=== PATIENT | male | born 1945 | race Caucasian/White ===

== ENCOUNTER 2019-04-08 23:55 | Emergency (ER) | payer MEDICARE, OTHER ==
[~2019-04-08] VITALS: Ht 172.7 cm; Wt 95.3 kg
[~2019-04-08 23:55] MED LIST: ALBU1AER4 IN; APIX5TAB PO; CHOL20007 OR; FURO40TA4 PO; MELA3TAB27 PO; METF-370 PO; NITR1SPR TL
[2019-04-09 01:10] LABS: Basophils # (auto) 0 uL; Basophils % (auto) 0.7 % (0.0-2.0); Eosinophils # (auto) 0.3 uL; Hematocrit 42.8 % (41.0-53.0); Hemoglobin 14.3 g/dL (13.5-17.5); Lymphocytes # (auto) 1.1 uL; Lymphocytes % (auto) 17.4 % (10.0-50.0); Mean Corpuscular Hemoglobin 30.5 pg (28.0-32.0); Mean Corpuscular Hgb Conc. 33.3 g/dL (32.0-36.0); Mean Corpuscular Volume 91.5 fL (80.0-100.0); Monocytes # (auto) 0.5 uL; Neutrophils # (auto) 4.4 uL; Neutrophils % (auto) 68.9 % (37.0-80.0); Platelet Count (auto) 265 10^3/uL (140-450); Red Blood Cells 4.68 10^6/uL (4.5-5.90); Red Cell Distribution Width 14.8 % (11.8-14.3); White Blood Cell 6.3 10^3/uL (4.4-10.8)
[2019-04-09 01:26] LABS: Alanine Aminotransferase 17 U/L (16-61); Anion Gap 6 (5-15); BUN/Creatinine Ratio 8.1; Blood Urea Nitrogen 8 mg/dL (7-18); Calcium 8.3 mg/dL (8.5-10.1); Carbon Dioxide 23 mmol/L (21-32); Chloride 114 mmol/L (98-107); GFR African American 95 mL/min; GFR Non-African American 79 mL/min; Glucose 131 mg/dL (74-106); Potassium 3.8 mmol/L (3.5-5.1); Sodium 143 mmol/L (136-145)
[2019-04-09 01:31] LABS: Alkaline Phosphatase 56 U/L (45-117); Aspartate Aminotransferase 8 U/L (15-37); Bilirubin, Total 0.6 mg/dL (0.2-1.0); Total Protein 6.5 g/dL (6.4-8.2)
[2019-04-09 01:57] VITALS: BP 119/75
[2019-04-09] MEDS ORDERED: HYDROcodone-ACET 5/325MG TAB PO ONE (03:15)
== END 2019-04-09 03:39 | disposition home or self-care (01) ==
LOC: EDBD 23:55 → ER 23:59
DX: S00.93XA Contusion of unspecified part of head, initial encounter (principal); I48.20 Chronic atrial fibrillation, unspecified; Z79.01 Long term (current) use of anticoagulants; I25.10 Atherosclerotic heart disease of native coronary artery without angina pectoris; E11.9 Type 2 diabetes mellitus without complications; E78.5 Hyperlipidemia, unspecified; I10 Essential (primary) hypertension; Z88.0 Allergy status to penicillin; Z88.8 Allergy status to other drugs, medicaments and biological substances; X58.XXXA Exposure to other specified factors, initial encounter; Y93.89 Activity, other specified; Y92.89 Other specified places as the place of occurrence of the external cause; Y99.8 Other external cause status
CPT/HCPCS: 36415; 70450; 71045; 71250; 72125; 80053; 84484; 85025; 93005

== ENCOUNTER 2020-10-22 03:55 | Inpatient (IN) | payer MEDICARE, OTHER ==
[~2020-10-22] VITALS: Ht 175.3 cm; Wt 101.7 kg
[2020-10-22 04:55] LABS: Basophils # (auto) 0 10 ^3/uL (0-0.2); Basophils % (auto) 0.8 % (0.0-2.0); Eosinophils # (auto) 0.2 10 ^3/uL (0-0.8); Eosinophils % (auto) 3.6 % (0.0-7.0); Hematocrit 36.3 % (41.0-53.0); Hemoglobin 12.4 g/dL (13.5-17.5); Lymphocytes # (auto) 1.1 10 ^3/uL (0.4-5.4); Lymphocytes % (auto) 18.7 % (10.0-50.0); Mean Corpuscular Hemoglobin 30.2 pg (28.0-32.0); Mean Corpuscular Hgb Conc. 34.2 g/dL (32.0-36.0); Mean Corpuscular Volume 88.4 fL (80.0-100.0); Monocytes # (auto) 0.7 10 ^3/uL (0-1.3); Monocytes % (auto) 10.8 % (0.0-12.0); Neutrophils # (auto) 4.1 10 ^3/uL (1.6-8.6); Neutrophils % (auto) 66.1 % (37.0-80.0); Red Blood Cells 4.11 10^6/uL (4.5-5.90); Red Cell Distribution Width 13.7 % (11.8-14.3); White Blood Cell 6.1 10^3/uL (4.4-10.8)
[2020-10-22 05:13] LABS: BUN/Creatinine Ratio 19.4; Calcium 8.2 mg/dL (8.5-10.1); Potassium 3.6 mmol/L (3.5-5.1)
[2020-10-22] MEDS ORDERED: ONDANSETRON HCL 4 MG/2 ML VIAL IV ONE ×2 (05:30→07:15)
[2020-10-22] MEDS ORDERED: MORPHINE SULFATE 4 MG/ML SYR/VIAL IV ONE ×2 (05:30→07:15)
[2020-10-22 05:42] LABS: Urine Bacteria NONE SEEN /hpf (None Seen); Urine Blood Negative /uL (Negative); Urine Specific Gravity 1.008 (1.001-1.035); Urine WBC <1 /hpf (0 - 3)
[2020-10-22] MEDS ORDERED: SODIUM CHLORIDE 0.9% 1,000 ML IV ONE (07:15)
[2020-10-22 09:33] LABS: INR 1.03 (0.9-1.15); Partial Thromboplastin Time 28.1 sec (23.0-31.2)
[2020-10-22] MEDS ORDERED: ACETAMINOPHEN 500 MG TAB PO PRN (10:30)
[2020-10-22] MEDS ORDERED: LABETALOL HCL 5 MG/ML ML 20ML VIAL IV PRN (10:30)
[2020-10-22] MEDS ORDERED: MORPHINE SULFATE INJECTION 2 MG/ML SYRG IV PRN (10:30)
[2020-10-22] MEDS ORDERED: DEXTROSE (50%) 50ML SYRG IV PRN (10:30)
[2020-10-22] MEDS ORDERED: LORazepam 2MG/ML-1ML VIAL IV PRN (10:30)
[2020-10-22] MEDS ORDERED: ONDANSETRON HCL 4 MG/2 ML VIAL IV PRN (10:30)
[2020-10-22] MEDS ORDERED: levETIRAcetam 500 MG TAB PO ONE (10:30)
[2020-10-22] MEDS: ACCU-CHEK COMFORT CURVE STRIP VI SCH ×3 (12:28→21:48)
[2020-10-22] MEDS: InsuLIN REG 1unit/0.01ml Soln (100units/ml) SC SCH ×3 (12:32→21:50)
[2020-10-22 13:00] VITALS: BP 135/89
[2020-10-22 13:10] VITALS: BP 135/89
[2020-10-22] MEDS ORDERED: MAGN400C3 PO (15:30)
[2020-10-22] MEDS ORDERED: POTA-180 PO (15:30)
[2020-10-22] MEDS: NITROGLYCERIN 0.4 MG SL TAB SL PRN ×2 (16:26→16:35)
[2020-10-22] MEDS: SODIUM CHLOR 0.9% PF (SALINE LOCK) 10ML VIAL/SYR IV SCH ×2 (16:41→22:00)
[2020-10-22 17:00] VITALS: BP 128/79
[2020-10-22] MEDS ORDERED: NITROGLYCERIN 0.2MG/HR TOPICAL PATCH TD ONE (19:00)
[2020-10-22 20:00] VITALS: BP 145/78
[2020-10-22] MEDS: traMADol HCL 50 MG TAB PO PRN (20:04)
[2020-10-22] MEDS: CARVEDILOL 3.125 MG TAB PO SCH (21:48)
[2020-10-22] MEDS: levETIRAcetam 500 MG TAB PO SCH (21:48)
[2020-10-22] MEDS: MELATONIN 3 MG PO SCH (21:54)
[2020-10-22 23:00] VITALS: BP 145/78
[2020-10-23] MEDS: traMADol HCL 50 MG TAB PO PRN ×3 (03:25→17:12)
[2020-10-23 05:25] VITALS: BP 124/82
[2020-10-23] MEDS: ACCU-CHEK COMFORT CURVE STRIP VI SCH ×4 (05:47→22:50)
[2020-10-23] MEDS: SODIUM CHLOR 0.9% PF (SALINE LOCK) 10ML VIAL/SYR IV SCH ×3 (05:47→22:37)
[2020-10-23] MEDS: CHOLECALCIFEROL (VITD3) 1,000UNIT=25mCg TAB PO SCH (05:47)
[2020-10-23] MEDS: InsuLIN REG 1unit/0.01ml Soln (100units/ml) SC SCH ×4 (05:55→22:52)
[2020-10-23 06:35] LABS: Cholesterol 117 mg/dL (< 200); HDL Cholesterol 43 mg/dL (40-59); LDL Cholesterol 69 mg/dL (< 100); Triglycerides 60 mg/dL (< 150)
[2020-10-23 09:00] VITALS: BP 120/73
[2020-10-23] MEDS: levETIRAcetam 500 MG TAB PO SCH ×2 (09:46→22:42)
[2020-10-23] MEDS: FUROSEMIDE 40 MG TAB PO SCH (09:47)
[2020-10-23] MEDS: ENALAPRIL MALEATE 2.5 MG TAB PO SCH (09:48)
[2020-10-23] MEDS: CARVEDILOL 3.125 MG TAB PO SCH ×2 (09:49→22:42)
[2020-10-23] MEDS: PANTOPRAZOLE 40 MG TAB PO SCH (09:50)
[2020-10-23] MEDS ORDERED: APIXABAN 5 MG TAB PO SCH (10:00)
[2020-10-23] MEDS ORDERED: NITROGLYCERIN 0.2MG/HR TOPICAL PATCH TD SCH (10:00)
[2020-10-23 13:00] VITALS: BP 111/69
[2020-10-23 17:00] VITALS: BP 110/63
[2020-10-23 20:00] VITALS: BP 125/75
[2020-10-23 22:00] VITALS: BP 124/79
[2020-10-23] MEDS: MELATONIN 3 MG PO SCH (22:00)
[2020-10-23] MEDS: DOXYCYCLINE 100 MG TAB/CAP PO SCH (22:42)
[2020-10-24] MEDS: traMADol HCL 50 MG TAB PO PRN (00:18)
[2020-10-24 05:15] VITALS: BP 123/71
[2020-10-24] MEDS: SODIUM CHLOR 0.9% PF (SALINE LOCK) 10ML VIAL/SYR IV SCH ×3 (06:03→21:12)
[2020-10-24] MEDS: ACCU-CHEK COMFORT CURVE STRIP VI SCH ×4 (06:04→21:06)
[2020-10-24] MEDS: CHOLECALCIFEROL (VITD3) 1,000UNIT=25mCg TAB PO SCH (06:04)
[2020-10-24] MEDS: InsuLIN REG 1unit/0.01ml Soln (100units/ml) SC SCH ×4 (06:13→21:11)
[2020-10-24 08:43] VITALS: BP 112/68
[2020-10-24 09:27] LABS: Urine Bacteria NONE SEEN /hpf (None Seen); Urine Blood Negative /uL (Negative); Urine Mucus FEW (None Seen); Urine Specific Gravity 1.022 (1.001-1.035); Urine WBC 1 /hpf (0 - 3)
[2020-10-24] MEDS: PANTOPRAZOLE 40 MG TAB PO SCH (09:46)
[2020-10-24] MEDS: levETIRAcetam 500 MG TAB PO SCH ×2 (09:46→21:14)
[2020-10-24] MEDS: FUROSEMIDE 40 MG TAB PO SCH (09:46)
[2020-10-24] MEDS: MUPIROCIN 2% OINT 15gm or 22gm EACHNOSTRI SCH ×3 (09:46→21:12)
[2020-10-24] MEDS: CARVEDILOL 3.125 MG TAB PO SCH ×2 (09:46→21:14)
[2020-10-24] MEDS: DOXYCYCLINE 100 MG TAB/CAP PO SCH ×2 (09:46→21:14)
[2020-10-24] MEDS: ENALAPRIL MALEATE 2.5 MG TAB PO SCH (09:47)
[2020-10-24 11:48] LABS: Basophils # (auto) 0.1 10 ^3/uL (0-0.2); Basophils % (auto) 0.4 % (0.0-2.0); Eosinophils # (auto) 0.1 10 ^3/uL (0-0.8); Eosinophils % (auto) 0.4 % (0.0-7.0); Hematocrit 33.9 % (41.0-53.0); Hemoglobin 11.5 g/dL (13.5-17.5); Lymphocytes # (auto) 1.8 10 ^3/uL (0.4-5.4); Lymphocytes % (auto) 12.5 % (10.0-50.0); Monocytes # (auto) 2.3 10 ^3/uL (0-1.3); Monocytes % (auto) 15.7 % (0.0-12.0); Neutrophils # (auto) 10.2 10 ^3/uL (1.6-8.6); Red Blood Cells 3.85 10^6/uL (4.5-5.90); Red Cell Distribution Width 13.5 % (11.8-14.3); White Blood Cell 14.4 10^3/uL (4.4-10.8)
[2020-10-24 12:42] VITALS: BP 149/84
[2020-10-24 16:40] VITALS: BP 115/90
[2020-10-24] MEDS: MELATONIN 3 MG PO SCH (21:13)
[2020-10-24] MEDS: HYDROcodone-ACET 5/325MG TAB PO PRN (21:26)
[2020-10-24 22:00] VITALS: BP 130/55
[2020-10-25] MEDS: ACCU-CHEK COMFORT CURVE STRIP VI SCH ×4 (06:07→21:49)
[2020-10-25] MEDS: CHOLECALCIFEROL (VITD3) 1,000UNIT=25mCg TAB PO SCH (06:07)
[2020-10-25] MEDS: SODIUM CHLOR 0.9% PF (SALINE LOCK) 10ML VIAL/SYR IV SCH ×3 (06:07→21:48)
[2020-10-25] MEDS: InsuLIN REG 1unit/0.01ml Soln (100units/ml) SC SCH ×4 (06:07→21:49)
[2020-10-25 06:25] VITALS: BP 138/71
[2020-10-25 09:00] VITALS: BP 105/62
[2020-10-25] MEDS ORDERED: metroNIDAZOLE 500MG/100ML 100 ML IV SCH (10:00)
[2020-10-25 13:00] VITALS: BP 114/72
[2020-10-25] MEDS: ENALAPRIL MALEATE 2.5 MG TAB PO SCH (13:09)
[2020-10-25] MEDS: CARVEDILOL 3.125 MG TAB PO SCH ×2 (13:10→21:49)
[2020-10-25] MEDS: HYDROcodone-ACET 5/325MG TAB PO PRN ×2 (13:12→21:53)
[2020-10-25] MEDS: levETIRAcetam 500 MG TAB PO SCH ×2 (13:12→21:49)
[2020-10-25] MEDS: FUROSEMIDE 40 MG TAB PO SCH (13:13)
[2020-10-25] MEDS: MUPIROCIN 2% OINT 15gm or 22gm EACHNOSTRI SCH ×2 (13:13→21:48)
[2020-10-25 14:43] LABS: INR 1.03 (0.9-1.15)
[2020-10-25 14:52] LABS: Albumin 2.9 g/dL (3.4-5.0); BUN/Creatinine Ratio 25.9; Calcium 8.1 mg/dL (8.5-10.1)
[2020-10-25 14:55] LABS: Bilirubin, Total 1.4 mg/dL (0.2-1.0); Total Protein 6.8 g/dL (6.4-8.2)
[2020-10-25 15:26] LABS: Potassium 2.9 mmol/L (3.5-5.1)
[2020-10-25 17:00] VITALS: BP 104/74
[2020-10-25] MEDS ORDERED: POTASSIUM CHL 20 Meq TABLET PO ONE (17:15)
[2020-10-25] MEDS ORDERED: POTASSIUM CHLORIDE 40 MEQ, LIDOCAINE 1% (LOCAL ANESTH.) 4 ML in SODIUM CHL 0.9% 250 ML IV ONE (17:15)
[2020-10-25] MEDS ORDERED: LORazepam 2MG/ML-1ML VIAL IV PRN (19:45)
[2020-10-25 21:41] VITALS: BP 107/59
[2020-10-25] MEDS: MELATONIN 3 MG PO SCH (21:48)
[2020-10-25 21:49] LABS: Folate (Folic Acid) 17.31 ng/mL (5.38-24)
[2020-10-26 05:10] VITALS: BP 122/75
[2020-10-26] MEDS: SODIUM CHLOR 0.9% PF (SALINE LOCK) 10ML VIAL/SYR IV SCH ×3 (05:17→21:04)
[2020-10-26] MEDS: InsuLIN REG 1unit/0.01ml Soln (100units/ml) SC SCH ×4 (05:18→21:06)
[2020-10-26] MEDS: CHOLECALCIFEROL (VITD3) 1,000UNIT=25mCg TAB PO SCH (05:18)
[2020-10-26] MEDS: ACCU-CHEK COMFORT CURVE STRIP VI SCH ×4 (05:18→21:06)
[2020-10-26] MEDS: HYDROcodone-ACET 5/325MG TAB PO PRN ×3 (05:32→21:09)
[2020-10-26 06:47] LABS: Basophils # (auto) 0.1 10 ^3/uL (0-0.2); Basophils % (auto) 0.6 % (0.0-2.0); Eosinophils # (auto) 0.2 10 ^3/uL (0-0.8); Eosinophils % (auto) 1.7 % (0.0-7.0); Hematocrit 31.1 % (41.0-53.0); Hemoglobin 11.1 g/dL (13.5-17.5); Lymphocytes # (auto) 1.4 10 ^3/uL (0.4-5.4); Lymphocytes % (auto) 12.9 % (10.0-50.0); Mean Corpuscular Hgb Conc. 35.6 g/dL (32.0-36.0); Mean Corpuscular Volume 87.3 fL (80.0-100.0); Monocytes # (auto) 1.5 10 ^3/uL (0-1.3); Monocytes % (auto) 13.8 % (0.0-12.0); Neutrophils # (auto) 7.6 10 ^3/uL (1.6-8.6); Red Blood Cells 3.56 10^6/uL (4.5-5.90); Red Cell Distribution Width 13.7 % (11.8-14.3); White Blood Cell 10.8 10^3/uL (4.4-10.8)
[2020-10-26 07:04] LABS: BUN/Creatinine Ratio 32.5; Calcium 8.2 mg/dL (8.5-10.1); Potassium 3.4 mmol/L (3.5-5.1)
[2020-10-26 09:00] VITALS: BP 125/78
[2020-10-26] MEDS: CARVEDILOL 3.125 MG TAB PO SCH ×2 (09:20→21:05)
[2020-10-26] MEDS: levETIRAcetam 500 MG TAB PO SCH ×2 (09:20→21:05)
[2020-10-26] MEDS: ENALAPRIL MALEATE 2.5 MG TAB PO SCH (09:21)
[2020-10-26] MEDS: FUROSEMIDE 40 MG TAB PO SCH (09:21)
[2020-10-26] MEDS: MUPIROCIN 2% OINT 15gm or 22gm EACHNOSTRI SCH ×2 (09:25→21:04)
[2020-10-26] MEDS: POTASSIUM CHL 20 Meq TABLET PO SCH (09:27)
[2020-10-26 13:00] VITALS: BP 99/62
[2020-10-26 17:00] VITALS: BP 118/65
[2020-10-26] MEDS ORDERED: CYANOCOBALAMIN (B-12) 1000 MCG/1 ML VIAL IM ONE (20:45)
[2020-10-26] MEDS: MELATONIN 3 MG PO SCH (21:04)
[2020-10-26 22:00] VITALS: BP 128/85
[2020-10-26] MEDS ORDERED: POTASSIUM CHL 20 Meq TABLET PO ONE (22:00)
[2020-10-26] MEDS: LACTULOSE 20Gm/30ML SOLN PO PRN (22:36)
[2020-10-27] VITALS (10 sets, daily range): BP systolic 118–159; BP diastolic 60–83
[2020-10-27] MEDS: HYDROcodone-ACET 5/325MG TAB PO PRN (02:45)
[2020-10-27] MEDS: CHOLECALCIFEROL (VITD3) 1,000UNIT=25mCg TAB PO SCH (05:08)
[2020-10-27] MEDS: SODIUM CHLOR 0.9% PF (SALINE LOCK) 10ML VIAL/SYR IV SCH ×2 (05:08→22:52)
[2020-10-27] MEDS: InsuLIN REG 1unit/0.01ml Soln (100units/ml) SC SCH ×4 (05:08→23:16)
[2020-10-27] MEDS: ACCU-CHEK COMFORT CURVE STRIP VI SCH ×4 (05:09→22:53)
[2020-10-27 07:19] LABS: BUN/Creatinine Ratio 34.8; Calcium 8.5 mg/dL (8.5-10.1)
[2020-10-27 07:22] LABS: Potassium 2.9 mmol/L (3.5-5.1)
[2020-10-27] MEDS ORDERED: POTASSIUM CHLORIDE 60 MEQ, LIDOCAINE 1% (LOCAL ANESTH.) 6 ML in SODIUM CHL 0.9% 500 ML IV ONE (09:30)
[2020-10-27] MEDS ORDERED: POTASSIUM CHLORIDE 40 MEQ, LIDOCAINE 1% (LOCAL ANESTH.) 4 ML in SODIUM CHL 0.9% 250 ML IV ONE (09:30)
[2020-10-27] MEDS: CARVEDILOL 3.125 MG TAB PO SCH ×2 (10:00→23:02)
[2020-10-27] MEDS: POTASSIUM CHL 20 Meq TABLET PO SCH (10:00)
[2020-10-27] MEDS: ENALAPRIL MALEATE 2.5 MG TAB PO SCH (10:00)
[2020-10-27] MEDS: FUROSEMIDE 40 MG TAB PO SCH (10:00)
[2020-10-27] MEDS: CYANOCOBALAMIN 500 MCG TAB PO SCH (10:00)
[2020-10-27] MEDS: levETIRAcetam 500 MG TAB PO SCH ×2 (10:00→23:01)
[2020-10-27] MEDS: MUPIROCIN 2% OINT 15gm or 22gm EACHNOSTRI SCH ×2 (10:27→23:01)
[2020-10-27] MEDS ORDERED: BUPIVACAINE 0.5% P/F INJ 10 ML VIAL ONE (11:11)
[2020-10-27] MEDS ORDERED: fentaNYL CITRATE 100 MCG/2 ML VL ONE (11:12)
[2020-10-27] MEDS ORDERED: MIDAZOLAM HCL 2MG/2ML 2ml VIAL (1mg/ml) ONE (11:12)
[2020-10-27] MEDS ORDERED: MORPHINE SULF PF 2 MG/2 ML SYRG ONE (11:12)
[2020-10-27] MEDS ORDERED: PROPOFOL 10 MG/ML 20 ML IV ONE (11:13)
[2020-10-27] MEDS ORDERED: GLYCOPYRROLATE 0.2 MG/ML 1ML VIAL ONE (11:13)
[2020-10-27] MEDS ORDERED: ePHEDrine SULFATE 50 MG/ML AMP ONE (11:13)
[2020-10-27] MEDS ORDERED: LIDOCAINE 2% (LOCAL ANESTH.) PF 5ml SDV ONE (11:13)
[2020-10-27] MEDS ORDERED: ONDANSETRON HCL 4 MG/2 ML VIAL ONE (11:13)
[2020-10-27] MEDS ORDERED: PHENYLEPHRINE HCL 10 MG/ML VL ONE (11:13)
[2020-10-27] MEDS ORDERED: KETAMINE HCL 10 ML ONE (11:15)
[2020-10-27] MEDS ORDERED: ceFAZolin 1GM/50ML 100 ML IV ONE (12:09)
[2020-10-27] MEDS ORDERED: POTASSIUM CHLORIDE 20 MEQ, LIDOCAINE 1% (LOCAL ANESTH.) 2 ML in SODIUM CHL 0.9% 100 ML IV ONE (13:30)
[2020-10-27] MEDS ORDERED: ceFAZolin 1GM/50ML 50 ML IV SCH (14:15)
[2020-10-27] MEDS ORDERED: HYDROcodone-ACET 10/325MG TAB PO PRN (14:15)
[2020-10-27] MEDS ORDERED: ACETAMINOPHEN 325 MG TAB PO PRN (14:15)
[2020-10-27] MEDS ORDERED: ACCU-CHEK COMFORT CURVE STRIP VI ONE (14:30)
[2020-10-27] MEDS ORDERED: diphenhdrAMINE HCL 50 MG/1 ML VL IV PRN (14:30)
[2020-10-27] MEDS ORDERED: NALOXONE HCL 0.4 MG/ML VIAL IV PRN (14:30)
[2020-10-27] MEDS ORDERED: ONDANSETRON HCL 4 MG/2 ML VIAL IV PRN ×2 (14:30)
[2020-10-27] MEDS ORDERED: DexAMETHasone SOD PHOS 10MG/1ML VIAL INJ IV PRN (14:30)
[2020-10-27] MEDS: ceFAZolin 1GM/50ML 50 ML IV SCH ×2 (16:26→20:58)
[2020-10-27] MEDS: LACTATED RINGER'S 1,000 ML IV SCH ×2 (18:00→21:00)
[2020-10-27] MEDS: MELATONIN 3 MG PO SCH (22:00)
[2020-10-28] VITALS (11 sets, daily range): BP systolic 117–147; BP diastolic 62–87
[2020-10-28] MEDS: HYDROcodone-ACET 5/325MG TAB PO PRN ×2 (01:48→15:58)
[2020-10-28] MEDS: ceFAZolin 1GM/50ML 50 ML IV SCH (03:04)
[2020-10-28] MEDS: SODIUM CHLOR 0.9% PF (SALINE LOCK) 10ML VIAL/SYR IV SCH ×3 (06:21→21:47)
[2020-10-28] MEDS: ACCU-CHEK COMFORT CURVE STRIP VI SCH ×4 (06:21→21:47)
[2020-10-28] MEDS: CHOLECALCIFEROL (VITD3) 1,000UNIT=25mCg TAB PO SCH (06:22)
[2020-10-28] MEDS: InsuLIN REG 1unit/0.01ml Soln (100units/ml) SC SCH ×4 (06:38→21:47)
[2020-10-28 06:57] LABS: Basophils # (auto) 0.1 10 ^3/uL (0-0.2); Basophils % (auto) 0.5 % (0.0-2.0); Eosinophils # (auto) 0.1 10 ^3/uL (0-0.8); Eosinophils % (auto) 0.8 % (0.0-7.0); Hematocrit 27.7 % (41.0-53.0); Hemoglobin 9.8 g/dL (13.5-17.5); Lymphocytes # (auto) 1.4 10 ^3/uL (0.4-5.4); Lymphocytes % (auto) 11.4 % (10.0-50.0); Mean Corpuscular Hemoglobin 30.7 pg (28.0-32.0); Mean Corpuscular Hgb Conc. 35.4 g/dL (32.0-36.0); Mean Corpuscular Volume 86.8 fL (80.0-100.0); Monocytes # (auto) 1.9 10 ^3/uL (0-1.3); Monocytes % (auto) 15.3 % (0.0-12.0); Neutrophils # (auto) 9.2 10 ^3/uL (1.6-8.6); Red Cell Distribution Width 13.7 % (11.8-14.3); White Blood Cell 12.7 10^3/uL (4.4-10.8)
[2020-10-28 07:30] LABS: Calcium 8.1 mg/dL (8.5-10.1); Magnesium 2.3 mg/dL (1.6-2.6); Potassium 3.5 mmol/L (3.5-5.1)
[2020-10-28 07:32] LABS: BUN/Creatinine Ratio 28.6; Phosphorus 2.5 mg/dL (2.5-4.90)
[2020-10-28] MEDS: CYANOCOBALAMIN 500 MCG TAB PO SCH (10:00)
[2020-10-28] MEDS: ENALAPRIL MALEATE 2.5 MG TAB PO SCH (10:00)
[2020-10-28] MEDS: FUROSEMIDE 40 MG TAB PO SCH (10:00)
[2020-10-28] MEDS: LACTATED RINGER'S 1,000 ML IV SCH ×3 (10:15→22:24)
[2020-10-28] MEDS: MUPIROCIN 2% OINT 15gm or 22gm EACHNOSTRI SCH (10:35)
[2020-10-28] MEDS: APIXABAN 2.5 MG TAB PO SCH ×2 (10:36→21:47)
[2020-10-28] MEDS: CARVEDILOL 3.125 MG TAB PO SCH ×2 (10:36→22:23)
[2020-10-28] MEDS: levETIRAcetam 500 MG TAB PO SCH ×2 (10:37→21:47)
[2020-10-28] MEDS: POTASSIUM CHL 20 Meq TABLET PO SCH (10:37)
[2020-10-28] MEDS: MORPHINE SULFATE INJECTION 2 MG/ML SYRG IV PRN (17:45)
[2020-10-28] MEDS: MELATONIN 3 MG PO SCH (22:00)
[2020-10-29] MEDS: MORPHINE SULFATE INJECTION 2 MG/ML SYRG IV PRN (02:40)
[2020-10-29 05:29] VITALS: BP 136/69
[2020-10-29 05:56] LABS: Hematocrit 28.5 % (41.0-53.0); Hemoglobin 9.8 g/dL (13.5-17.5)
[2020-10-29] MEDS: SODIUM CHLOR 0.9% PF (SALINE LOCK) 10ML VIAL/SYR IV SCH ×3 (06:00→21:21)
[2020-10-29] MEDS: ACCU-CHEK COMFORT CURVE STRIP VI SCH ×4 (06:33→21:25)
[2020-10-29] MEDS: InsuLIN REG 1unit/0.01ml Soln (100units/ml) SC SCH ×4 (06:33→22:25)
[2020-10-29] MEDS: CHOLECALCIFEROL (VITD3) 1,000UNIT=25mCg TAB PO SCH (06:33)
[2020-10-29 09:00] VITALS: BP 118/60
[2020-10-29] MEDS: CARVEDILOL 3.125 MG TAB PO SCH ×2 (11:17→21:24)
[2020-10-29] MEDS: FUROSEMIDE 40 MG TAB PO SCH (11:17)
[2020-10-29] MEDS: ENALAPRIL MALEATE 2.5 MG TAB PO SCH (11:18)
[2020-10-29] MEDS: CYANOCOBALAMIN 500 MCG TAB PO SCH (11:18)
[2020-10-29] MEDS: levETIRAcetam 500 MG TAB PO SCH ×2 (11:19→21:24)
[2020-10-29] MEDS: POTASSIUM CHL 20 Meq TABLET PO SCH (11:19)
[2020-10-29] MEDS: APIXABAN 2.5 MG TAB PO SCH ×2 (11:19→21:24)
[2020-10-29] MEDS: HYDROcodone-ACET 5/325MG TAB PO PRN ×2 (11:30→17:25)
[2020-10-29] MEDS: LACTATED RINGER'S 1,000 ML IV SCH (16:37)
[2020-10-29 17:00] VITALS: BP 118/61
[2020-10-29] MEDS: LOPERAMIDE HCL 2 MG CAP PO PRN (18:06)
[2020-10-29] MEDS: MELATONIN 3 MG PO SCH (21:20)
[2020-10-29 22:00] VITALS: BP 133/77
[2020-10-30] MEDS: LOPERAMIDE HCL 2 MG CAP PO PRN (00:49)
[2020-10-30 05:00] VITALS: BP 147/80
[2020-10-30] MEDS: SODIUM CHLOR 0.9% PF (SALINE LOCK) 10ML VIAL/SYR IV SCH ×3 (06:23→21:32)
[2020-10-30] MEDS: InsuLIN REG 1unit/0.01ml Soln (100units/ml) SC SCH ×4 (06:36→22:02)
[2020-10-30] MEDS: ACCU-CHEK COMFORT CURVE STRIP VI SCH ×4 (06:37→22:13)
[2020-10-30] MEDS: CHOLECALCIFEROL (VITD3) 1,000UNIT=25mCg TAB PO SCH (06:37)
[2020-10-30 09:00] VITALS: BP 133/87
[2020-10-30] MEDS: POTASSIUM CHL 20 Meq TABLET PO SCH (10:00)
[2020-10-30] MEDS: CYANOCOBALAMIN 500 MCG TAB PO SCH (10:00)
[2020-10-30] MEDS: FUROSEMIDE 40 MG TAB PO SCH (10:00)
[2020-10-30] MEDS: levETIRAcetam 500 MG TAB PO SCH ×2 (10:00→22:12)
[2020-10-30] MEDS: CARVEDILOL 3.125 MG TAB PO SCH ×2 (10:00→22:47)
[2020-10-30] MEDS: APIXABAN 2.5 MG TAB PO SCH ×2 (10:00→22:12)
[2020-10-30] MEDS: ENALAPRIL MALEATE 2.5 MG TAB PO SCH (10:00)
[2020-10-30] MEDS: HYDROcodone-ACET 5/325MG TAB PO PRN (11:30)
[2020-10-30 13:00] VITALS: BP 105/65
[2020-10-30 17:00] VITALS: BP 120/80
[2020-10-30] MEDS: MELATONIN 3 MG PO SCH (21:31)
[2020-10-30 22:00] VITALS: BP 147/78
[2020-10-31 05:00] VITALS: BP 127/72
[2020-10-31] MEDS: SODIUM CHLOR 0.9% PF (SALINE LOCK) 10ML VIAL/SYR IV SCH ×3 (06:13→22:00)
[2020-10-31] MEDS: CHOLECALCIFEROL (VITD3) 1,000UNIT=25mCg TAB PO SCH (06:48)
[2020-10-31] MEDS: ACCU-CHEK COMFORT CURVE STRIP VI SCH ×4 (06:54→22:00)
[2020-10-31] MEDS: InsuLIN REG 1unit/0.01ml Soln (100units/ml) SC SCH ×4 (06:54→22:00)
[2020-10-31 09:00] VITALS: BP 142/72
[2020-10-31] MEDS: CARVEDILOL 3.125 MG TAB PO SCH ×2 (10:05→22:05)
[2020-10-31] MEDS: APIXABAN 2.5 MG TAB PO SCH ×2 (10:06→22:05)
[2020-10-31] MEDS: POTASSIUM CHL 20 Meq TABLET PO SCH (10:06)
[2020-10-31] MEDS: CYANOCOBALAMIN 500 MCG TAB PO SCH (10:06)
[2020-10-31] MEDS: FUROSEMIDE 40 MG TAB PO SCH (10:06)
[2020-10-31] MEDS: ENALAPRIL MALEATE 2.5 MG TAB PO SCH (10:07)
[2020-10-31] MEDS: HYDROcodone-ACET 5/325MG TAB PO PRN (11:39)
[2020-10-31 13:00] VITALS: BP 112/61
[2020-10-31 16:49] VITALS: BP 114/65
[2020-10-31 22:00] VITALS: BP 122/69
[2020-10-31] MEDS: MELATONIN 3 MG PO SCH (22:00)
[2020-11-01 05:00] VITALS: BP 122/69
[2020-11-01] MEDS: SODIUM CHLOR 0.9% PF (SALINE LOCK) 10ML VIAL/SYR IV SCH ×3 (06:00→22:00)
[2020-11-01] MEDS: CHOLECALCIFEROL (VITD3) 1,000UNIT=25mCg TAB PO SCH (06:48)
[2020-11-01] MEDS: InsuLIN REG 1unit/0.01ml Soln (100units/ml) SC SCH ×4 (06:49→22:53)
[2020-11-01] MEDS: ACCU-CHEK COMFORT CURVE STRIP VI SCH ×4 (07:22→22:00)
[2020-11-01 09:00] VITALS: BP 120/63
[2020-11-01] MEDS: ENALAPRIL MALEATE 2.5 MG TAB PO SCH (09:09)
[2020-11-01] MEDS: APIXABAN 2.5 MG TAB PO SCH ×2 (09:10→22:41)
[2020-11-01] MEDS: CYANOCOBALAMIN 500 MCG TAB PO SCH (09:10)
[2020-11-01] MEDS: FUROSEMIDE 40 MG TAB PO SCH (09:10)
[2020-11-01] MEDS: POTASSIUM CHL 20 Meq TABLET PO SCH (09:10)
[2020-11-01] MEDS: HYDROcodone-ACET 5/325MG TAB PO PRN ×2 (09:11→16:50)
[2020-11-01] MEDS: CARVEDILOL 3.125 MG TAB PO SCH ×2 (09:11→22:41)
[2020-11-01 13:00] VITALS: BP 111/75
[2020-11-01 16:52] VITALS: BP 124/59
[2020-11-01 22:00] VITALS: BP 107/68
[2020-11-01] MEDS: MELATONIN 3 MG PO SCH (22:00)
[2020-11-02 05:00] VITALS: BP 141/81
[2020-11-02] MEDS: SODIUM CHLOR 0.9% PF (SALINE LOCK) 10ML VIAL/SYR IV SCH ×3 (06:45→21:28)
[2020-11-02] MEDS: ACCU-CHEK COMFORT CURVE STRIP VI SCH ×4 (06:45→21:30)
[2020-11-02] MEDS: CHOLECALCIFEROL (VITD3) 1,000UNIT=25mCg TAB PO SCH (06:56)
[2020-11-02] MEDS: InsuLIN REG 1unit/0.01ml Soln (100units/ml) SC SCH ×4 (06:56→21:41)
[2020-11-02] MEDS: CARVEDILOL 3.125 MG TAB PO SCH ×2 (08:56→21:30)
[2020-11-02] MEDS: CYANOCOBALAMIN 500 MCG TAB PO SCH (08:56)
[2020-11-02] MEDS: APIXABAN 2.5 MG TAB PO SCH ×2 (08:56→21:30)
[2020-11-02] MEDS: FUROSEMIDE 40 MG TAB PO SCH (08:56)
[2020-11-02] MEDS: ENALAPRIL MALEATE 2.5 MG TAB PO SCH (08:56)
[2020-11-02] MEDS: POTASSIUM CHL 20 Meq TABLET PO SCH (08:57)
[2020-11-02 09:13] VITALS: BP 125/68
[2020-11-02] MEDS: HYDROcodone-ACET 5/325MG TAB PO PRN ×2 (12:08→17:45)
[2020-11-02 13:00] VITALS: BP 114/69
[2020-11-02 17:17] VITALS: BP 134/74
[2020-11-02] MEDS: MELATONIN 3 MG PO SCH (21:45)
[2020-11-02 22:00] VITALS: BP 140/78
[2020-11-03] MEDS: HYDROcodone-ACET 5/325MG TAB PO PRN (02:01)
[2020-11-03 05:00] VITALS: BP 120/70
[2020-11-03] MEDS: SODIUM CHLOR 0.9% PF (SALINE LOCK) 10ML VIAL/SYR IV SCH ×2 (06:00→12:08)
[2020-11-03] MEDS: ACCU-CHEK COMFORT CURVE STRIP VI SCH ×2 (06:12→11:30)
[2020-11-03] MEDS: CHOLECALCIFEROL (VITD3) 1,000UNIT=25mCg TAB PO SCH (06:12)
[2020-11-03] MEDS: InsuLIN REG 1unit/0.01ml Soln (100units/ml) SC SCH ×2 (06:12→11:30)
[2020-11-03 09:00] VITALS: BP 142/88
[2020-11-03] MEDS: POTASSIUM CHL 20 Meq TABLET PO SCH (10:12)
[2020-11-03] MEDS: APIXABAN 2.5 MG TAB PO SCH (10:12)
[2020-11-03] MEDS: CARVEDILOL 3.125 MG TAB PO SCH (10:12)
[2020-11-03] MEDS: FUROSEMIDE 40 MG TAB PO SCH (10:12)
[2020-11-03] MEDS: ENALAPRIL MALEATE 2.5 MG TAB PO SCH (10:13)
[2020-11-03] MEDS: CYANOCOBALAMIN 500 MCG TAB PO SCH (10:13)
[2020-11-03] MEDS: LACTULOSE 20Gm/30ML SOLN PO PRN (11:35)
[2020-11-03] MEDS ORDERED: metFORMIN HYDROCHLORIDE 500 MG TAB PO SCH (12:00)
[2020-11-03 12:35] VITALS: BP 137/79
[2020-11-03 12:45] VITALS: BP 137/79
== END 2020-11-03 15:20 | DRG 480 ==
LOC: EDBD 03:55 → ER 03:55 → TELE-WESTW 10:26
PROVIDERS: ADMIT Internal Medicine; ATTEND Internal Medicine
PROC: 0QS606Z Reposition Right Upper Femur with Intramedullary Internal Fixation Device, Open Approach (ICD-10-PCS; principal; 2020-10-27 12:16)
DX: M80.851A Other osteoporosis with current pathological fracture, right femur, initial encounter for fracture (principal); J18.9 Pneumonia, unspecified organism; F05 Delirium due to known physiological condition; S22.41XA Multiple fractures of ribs, right side, initial encounter for closed fracture; I50.22 Chronic systolic (congestive) heart failure; J98.11 Atelectasis; D68.69 Other thrombophilia; S72.21XA Displaced subtrochanteric fracture of right femur, initial encounter for closed fracture; Z20.822 Contact with and (suspected) exposure to COVID-19; G40.909 Epilepsy, unspecified, not intractable, without status epilepticus; I16.0 Hypertensive urgency; I48.91 Unspecified atrial fibrillation; I25.10 Atherosclerotic heart disease of native coronary artery without angina pectoris; E66.9 Obesity, unspecified; E78.5 Hyperlipidemia, unspecified; I25.5 Ischemic cardiomyopathy; E11.9 Type 2 diabetes mellitus without complications; I11.0 Hypertensive heart disease with heart failure; E78.00 Pure hypercholesterolemia, unspecified; J44.9 Chronic obstructive pulmonary disease, unspecified; E53.8 Deficiency of other specified B group vitamins; G62.9 Polyneuropathy, unspecified; W18.39XA Other fall on same level, initial encounter; Y93.89 Activity, other specified; Z88.0 Allergy status to penicillin; Z88.8 Allergy status to other drugs, medicaments and biological substances; Z82.49 Family history of ischemic heart disease and other diseases of the circulatory system; Z82.0 Family history of epilepsy and other diseases of the nervous system; Z95.1 Presence of aortocoronary bypass graft; Z79.01 Long term (current) use of anticoagulants; Y92.89 Other specified places as the place of occurrence of the external cause; Y99.8 Other external cause status; Z79.84 Long term (current) use of oral hypoglycemic drugs; Z95.2 Presence of prosthetic heart valve; Z79.899 Other long term (current) drug therapy; Z22.322 Carrier or suspected carrier of Methicillin resistant Staphylococcus aureus
CPT/HCPCS: 36415; 70551; 71045; 71101; 73502; 76000; 80048; 80053; 80061; 80185; 81001; 82607; 82746; 82784; 82962; 83036; 83516; 83735; 83880; 84100; 84155; 84165; 84443; 84484; 85014; 85018; 85025; 85610; 85730; 86255; 86850; 86900; 86901; 87070; 87081; 87205; 87426; 87493; 93005; 93306; 95819; 96361; 96374; 96375; 97110; 97116; 97530; A4565; C1713; G0378; J0690; J1815; J2001; J2250; J2405; J2704; J3490

== ENCOUNTER 2020-12-14 10:10 | Inpatient (IN) | payer MEDICARE, OTHER ==
[~2020-12-14] VITALS: Ht 177.8 cm; Wt 89.9 kg
[~2020-12-14 10:10] MED LIST changes: -APIX5TAB PO; -MELA3TAB27 PO; +POTA-180 PO
[2020-12-14 11:13] LABS: Hematocrit 39.6 % (41.0-53.0); Hemoglobin 13.4 g/dL (13.5-17.5); Mean Corpuscular Hemoglobin 29.4 pg (28.0-32.0); Mean Corpuscular Hgb Conc. 33.8 g/dL (32.0-36.0); Mean Corpuscular Volume 87.1 fL (80.0-100.0); Red Blood Cells 4.54 10^6/uL (4.5-5.90); Red Cell Distribution Width 14.7 % (11.8-14.3); White Blood Cell 6.1 10^3/uL (4.4-10.8)
[2020-12-14 11:20] LABS: Basophils % (manual) 0 (0.0-2.0); Blast Cells 0; Eosinophils % (manual) 0 (0-7); Metamyelocytes % 0; Monocytes % (manual) 0 (0-12); Myelocytes % 0; Promyelocytes % 0; Reactive Lymphocytes 0
[2020-12-14 12:00] LABS: Albumin 3.4 g/dL (3.4-5.0); Anion Gap 12 (5-15); Blood Urea Nitrogen 17 mg/dL (7-18); Calcium 8.7 mg/dL (8.5-10.1); Carbon Dioxide 19 mmol/L (21-32); Chloride 104 mmol/L (98-107); Glucose 108 mg/dL (74-106); Potassium 3.8 mmol/L (3.5-5.1); Sodium 135 mmol/L (136-145)
[2020-12-14 12:07] LABS: Alanine Aminotransferase 14 U/L (16-61); Alkaline Phosphatase 163 U/L (45-117); Aspartate Aminotransferase 6 U/L (15-37); GFR African American 63 mL/min; GFR Non-African American 52 mL/min; Total Protein 7.2 g/dL (6.4-8.2)
[2020-12-14 12:13] LABS: Band Neutrophils % (manual) 2; Lymphocytes % (manual) 16 (10.0-50.0)
[2020-12-14] MEDS ORDERED: ASCORBIC ACID 500 MG TAB PO ONE (14:00)
[2020-12-14] MEDS ORDERED: CHOLECALCIFEROL (VITD3) 2,000 UNIT CAP/TAB PO ONE (14:00)
[2020-12-14] MEDS ORDERED: AZITHROMYCIN 500MG/ 250ML 250 ML IV ONE (14:00)
[2020-12-14] MEDS ORDERED: methylPREDNISolone SOD SUCC 125 MG/2 ML VL IV ONE (14:00)
[2020-12-14] MEDS ORDERED: ZINC SULFATE 220mg CAP or TAB PO ONE (14:00)
[2020-12-14] MEDS ORDERED: NITROGLYCERIN 0.4 MG SL TAB SL PRN (14:45)
[2020-12-14] MEDS ORDERED: DEXTROSE (50%) 50ML SYRG IV PRN (14:45)
[2020-12-14] MEDS ORDERED: MORPHINE SULFATE INJECTION 2 MG/ML SYRG IV PRN (14:45)
[2020-12-14] MEDS ORDERED: REMDESIVIR PER PHARMACY 0 ML IV SCH (14:45)
[2020-12-14] MEDS ORDERED: ACETAMINOPHEN 500 MG TAB PO PRN ×2 (14:45)
[2020-12-14] MEDS ORDERED: ONDANSETRON HCL 4 MG/2 ML VIAL IV PRN (14:45)
[2020-12-14] MEDS ORDERED: REMDESIVIR 200 MG in NS 210ml LOADING DOSE ADULT IV ONE (16:00)
[2020-12-14 16:11] LABS: Thyroid Stimulating Hormone 0.6 uIU/mL (0.358-3.74)
[2020-12-14] MEDS ORDERED: cefTRIAXone 1GM/50ML D5W 50 ML IV ONE (17:00)
[2020-12-14] MEDS: InsuLIN REG 1unit/0.01ml Soln (100units/ml) SC SCH ×2 (19:00→22:00)
[2020-12-14] MEDS: ACCU-CHEK COMFORT CURVE STRIP VI SCH ×2 (19:16→22:00)
[2020-12-14 21:30] VITALS: BP 147/75
[2020-12-14] MEDS: ENOXAPARIN SOD 40 MG/0.4 ML SYRINGE SC SCH (22:00)
[2020-12-14] MEDS: MORPHINE SULFATE INJECTION 2 MG/ML SYRG IV PRN (22:09)
[2020-12-15 05:00] VITALS: BP 127/87
[2020-12-15] MEDS: IVERMECTIN 3 MG TAB PO SCH (06:29)
[2020-12-15] MEDS: ACCU-CHEK COMFORT CURVE STRIP VI SCH ×4 (06:29→21:37)
[2020-12-15] MEDS: InsuLIN REG 1unit/0.01ml Soln (100units/ml) SC SCH ×4 (06:29→21:38)
[2020-12-15 07:42] LABS: Potassium 3.9 mmol/L (3.5-5.1)
[2020-12-15 07:49] LABS: Albumin 2.9 g/dL (3.4-5.0); BUN/Creatinine Ratio 18.4; Bilirubin, Total 0.7 mg/dL (0.2-1.0); Total Protein 6.5 g/dL (6.4-8.2)
[2020-12-15 09:00] VITALS: BP 136/81
[2020-12-15] MEDS: cefTRIAXone 1GM/50ML D5W 50 ML IV SCH (09:26)
[2020-12-15] MEDS: DexAMETHasone SOD PHOS 10MG/1ML VIAL INJ IV SCH (09:26)
[2020-12-15] MEDS: ASCORBIC ACID 1,000 MG TAB PO SCH (09:27)
[2020-12-15] MEDS: ENOXAPARIN SOD 40 MG/0.4 ML SYRINGE SC SCH ×2 (09:27→21:37)
[2020-12-15] MEDS: CHOLECALCIFEROL (VITD3) 2,000 UNIT CAP/TAB PO SCH (09:27)
[2020-12-15] MEDS: BUDESONIDE (INHALATION) 180 MCG IH IN SCH ×2 (10:00→20:19)
[2020-12-15] MEDS ORDERED: CYANOCOBALAMIN (B-12) 1000 MCG/1 ML VIAL SUBCUT ONE (10:45)
[2020-12-15] MEDS: AZITHROMYCIN 500MG/ 250ML 250 ML IV SCH (11:50)
[2020-12-15 12:18] VITALS: BP 109/76
[2020-12-15] MEDS: REMDESIVIR 100mg 100 MG in SODIUM CHL 0.9% 230 ML IV SCH (15:01)
[2020-12-15] MEDS: HYDROcodone-ACET 5/325MG TAB PO PRN (17:50)
[2020-12-15 20:00] VITALS: BP 129/87
[2020-12-15 22:00] VITALS: BP 129/87
[2020-12-16 00:01] LABS: Urine Bacteria NONE SEEN /hpf (None Seen); Urine Blood Negative /uL (Negative); Urine Specific Gravity 1.007 (1.001-1.035); Urine WBC <1 /hpf (0 - 3)
[2020-12-16 00:09] LABS: Alcohol, Urine < 3.0 mg/dL (0-10); Amphetamine Screen, Urine NEGATIVE (NEGATIVE); Barbiturate Scree,Urine NEGATIVE (NEGATIVE); Benzodiazephine Screen, Urine NEGATIVE (NEGATIVE); Cannabinoid Screen, Urine NEGATIVE (NEGATIVE); Cocaine Screen, Urine NEGATIVE (NEGATIVE); Opiate Scree,Urine NEGATIVE (NEGATIVE); Phencyclidine Screen, Urine NEGATIVE (NEGATIVE)
[2020-12-16] MEDS: MORPHINE SULFATE INJECTION 2 MG/ML SYRG IV PRN (01:35)
[2020-12-16 05:00] VITALS: BP 146/87
[2020-12-16] MEDS: BUDESONIDE (INHALATION) 180 MCG IH IN SCH ×2 (06:49→21:49)
[2020-12-16 06:53] LABS: BUN/Creatinine Ratio 24.1; Bilirubin, Total 0.5 mg/dL (0.2-1.0); Calcium 8.6 mg/dL (8.5-10.1); Total Protein 6.6 g/dL (6.4-8.2)
[2020-12-16] MEDS: ACCU-CHEK COMFORT CURVE STRIP VI SCH ×4 (07:00→21:48)
[2020-12-16] MEDS: IVERMECTIN 3 MG TAB PO SCH (07:00)
[2020-12-16] MEDS: InsuLIN REG 1unit/0.01ml Soln (100units/ml) SC SCH ×4 (07:00→21:48)
[2020-12-16 08:00] VITALS: BP 117/74
[2020-12-16 09:00] VITALS: BP 118/75
[2020-12-16] MEDS: cefTRIAXone 1GM/50ML D5W 50 ML IV SCH (09:50)
[2020-12-16] MEDS: CHOLECALCIFEROL (VITD3) 2,000 UNIT CAP/TAB PO SCH (10:42)
[2020-12-16] MEDS: ASCORBIC ACID 1,000 MG TAB PO SCH (10:42)
[2020-12-16] MEDS: ENOXAPARIN SOD 40 MG/0.4 ML SYRINGE SC SCH ×2 (10:42→21:48)
[2020-12-16] MEDS: DexAMETHasone SOD PHOS 10MG/1ML VIAL INJ IV SCH (10:42)
[2020-12-16] MEDS: CYANOCOBALAMIN (B-12) 1000 MCG/1 ML VIAL SUBCUT SCH (10:43)
[2020-12-16] MEDS: AZITHROMYCIN 500MG/ 250ML 250 ML IV SCH (11:00)
[2020-12-16] MEDS: HYDROcodone-ACET 5/325MG TAB PO PRN ×2 (12:36→18:26)
[2020-12-16 13:00] VITALS: BP 127/68
[2020-12-16] MEDS: REMDESIVIR 100mg 100 MG in SODIUM CHL 0.9% 230 ML IV SCH (15:30)
[2020-12-16 17:00] VITALS: BP 129/92
[2020-12-16 22:00] VITALS: BP 115/89
[2020-12-17] MEDS: HYDROcodone-ACET 5/325MG TAB PO PRN ×3 (02:52→21:02)
[2020-12-17 05:00] VITALS: BP 132/92
[2020-12-17] MEDS: BUDESONIDE (INHALATION) 180 MCG IH IN SCH ×2 (06:41→22:00)
[2020-12-17] MEDS: IVERMECTIN 3 MG TAB PO SCH (06:50)
[2020-12-17] MEDS: InsuLIN REG 1unit/0.01ml Soln (100units/ml) SC SCH ×4 (06:50→22:24)
[2020-12-17] MEDS: ACCU-CHEK COMFORT CURVE STRIP VI SCH ×4 (06:50→22:15)
[2020-12-17 07:18] LABS: Potassium 3.5 mmol/L (3.5-5.1)
[2020-12-17 07:29] LABS: Albumin 2.8 g/dL (3.4-5.0); BUN/Creatinine Ratio 22.2; Bilirubin, Total 0.4 mg/dL (0.2-1.0); Total Protein 6.3 g/dL (6.4-8.2)
[2020-12-17] MEDS: cefTRIAXone 1GM/50ML D5W 50 ML IV SCH (08:58)
[2020-12-17] MEDS: DexAMETHasone SOD PHOS 10MG/1ML VIAL INJ IV SCH (08:58)
[2020-12-17] MEDS: AZITHROMYCIN 500MG/ 250ML 250 ML IV SCH (08:59)
[2020-12-17] MEDS: ENOXAPARIN SOD 40 MG/0.4 ML SYRINGE SC SCH ×2 (08:59→22:15)
[2020-12-17] MEDS: CHOLECALCIFEROL (VITD3) 2,000 UNIT CAP/TAB PO SCH (08:59)
[2020-12-17] MEDS: ASCORBIC ACID 1,000 MG TAB PO SCH (08:59)
[2020-12-17 09:00] VITALS: BP 141/83
[2020-12-17] MEDS: CYANOCOBALAMIN (B-12) 1000 MCG/1 ML VIAL SUBCUT SCH (09:01)
[2020-12-17 13:00] VITALS: BP 148/89
[2020-12-17] MEDS: REMDESIVIR 100mg 100 MG in SODIUM CHL 0.9% 230 ML IV SCH (15:00)
[2020-12-17 17:00] VITALS: BP 135/104
[2020-12-17 22:00] VITALS: BP 114/86
[2020-12-18] MEDS: HYDROcodone-ACET 5/325MG TAB PO PRN ×2 (02:21→09:54)
[2020-12-18 05:25] VITALS: BP 146/85
[2020-12-18] MEDS: ACCU-CHEK COMFORT CURVE STRIP VI SCH ×4 (06:25→22:14)
[2020-12-18] MEDS: InsuLIN REG 1unit/0.01ml Soln (100units/ml) SC SCH ×4 (06:25→22:43)
[2020-12-18] MEDS: IVERMECTIN 3 MG TAB PO SCH (06:26)
[2020-12-18 07:13] LABS: Albumin 2.8 g/dL (3.4-5.0); Potassium 3.3 mmol/L (3.5-5.1)
[2020-12-18 07:25] LABS: BUN/Creatinine Ratio 25.4; Bilirubin, Total 0.5 mg/dL (0.2-1.0); Calcium 8.5 mg/dL (8.5-10.1); Total Protein 6.2 g/dL (6.4-8.2)
[2020-12-18] MEDS: cefTRIAXone 1GM/50ML D5W 50 ML IV SCH (08:31)
[2020-12-18 09:00] VITALS: BP 139/90
[2020-12-18] MEDS: AZITHROMYCIN 500MG/ 250ML 250 ML IV SCH (09:50)
[2020-12-18] MEDS: ASCORBIC ACID 1,000 MG TAB PO SCH (09:51)
[2020-12-18] MEDS: DexAMETHasone SOD PHOS 10MG/1ML VIAL INJ IV SCH (09:52)
[2020-12-18] MEDS: CHOLECALCIFEROL (VITD3) 2,000 UNIT CAP/TAB PO SCH (09:52)
[2020-12-18] MEDS: ENOXAPARIN SOD 40 MG/0.4 ML SYRINGE SC SCH ×2 (09:52→22:40)
[2020-12-18] MEDS: CYANOCOBALAMIN (B-12) 1000 MCG/1 ML VIAL SUBCUT SCH (09:54)
[2020-12-18] MEDS: BUDESONIDE (INHALATION) 180 MCG IH IN SCH ×2 (10:31→21:18)
[2020-12-18 13:00] VITALS: BP 137/72
[2020-12-18 17:00] VITALS: BP 140/79
[2020-12-18] MEDS: REMDESIVIR 100mg 100 MG in SODIUM CHL 0.9% 230 ML IV SCH (17:03)
[2020-12-18 22:00] VITALS: BP 144/98
[2020-12-19] MEDS: HYDROcodone-ACET 5/325MG TAB PO PRN ×2 (03:30→21:45)
[2020-12-19 05:00] VITALS: BP 153/84
[2020-12-19 05:40] LABS: Basophils # (auto) 0 10 ^3/uL (0-0.2); Basophils % (auto) 0.2 % (0.0-2.0); Eosinophils # (auto) 0 10 ^3/uL (0-0.8); Eosinophils % (auto) 0.1 % (0.0-7.0); Hematocrit 42.4 % (41.0-53.0); Hemoglobin 14.3 g/dL (13.5-17.5); Lymphocytes # (auto) 1.2 10 ^3/uL (0.4-5.4); Lymphocytes % (auto) 17.1 % (10.0-50.0); Mean Corpuscular Hgb Conc. 33.7 g/dL (32.0-36.0); Mean Corpuscular Volume 85.9 fL (80.0-100.0); Monocytes # (auto) 0.8 10 ^3/uL (0-1.3); Monocytes % (auto) 11.8 % (0.0-12.0); Neutrophils # (auto) 5.1 10 ^3/uL (1.6-8.6); Neutrophils % (auto) 70.8 % (37.0-80.0); Nucleated Red Blood Cells % 0.1 %; Red Blood Cells 4.94 10^6/uL (4.5-5.90); Red Cell Distribution Width 14.6 % (11.8-14.3); White Blood Cell 7.2 10^3/uL (4.4-10.8)
[2020-12-19 05:54] LABS: Potassium 3.8 mmol/L (3.5-5.1)
[2020-12-19 06:02] LABS: BUN/Creatinine Ratio 22.7; CRP High Sensitivity 0.13 mg/dL (< 0.3); Calcium 8.4 mg/dL (8.5-10.1); Magnesium 2.5 mg/dL (1.6-2.6); Total Protein 6.3 g/dL (6.4-8.2)
[2020-12-19] MEDS: IVERMECTIN 3 MG TAB PO SCH (06:25)
[2020-12-19 06:29] LABS: Albumin 2.8 g/dL (3.4-5.0); Bilirubin, Total 0.5 mg/dL (0.2-1.0)
[2020-12-19] MEDS: ACCU-CHEK COMFORT CURVE STRIP VI SCH ×4 (06:55→22:00)
[2020-12-19] MEDS: BUDESONIDE (INHALATION) 180 MCG IH IN SCH ×2 (06:55→20:44)
[2020-12-19] MEDS: InsuLIN REG 1unit/0.01ml Soln (100units/ml) SC SCH ×4 (06:55→23:21)
[2020-12-19 09:00] VITALS: BP 138/87
[2020-12-19] MEDS: cefTRIAXone 1GM/50ML D5W 50 ML IV SCH (10:53)
[2020-12-19] MEDS: CHOLECALCIFEROL (VITD3) 2,000 UNIT CAP/TAB PO SCH (10:56)
[2020-12-19] MEDS: DexAMETHasone SOD PHOS 10MG/1ML VIAL INJ IV SCH (10:56)
[2020-12-19] MEDS: ASCORBIC ACID 1,000 MG TAB PO SCH (10:56)
[2020-12-19] MEDS: AZITHROMYCIN 500MG/ 250ML 250 ML IV SCH (10:57)
[2020-12-19] MEDS: ENOXAPARIN SOD 60 MG/0.6 ML SYRINGE SC SCH ×2 (10:57→21:45)
[2020-12-19 13:00] VITALS: BP 141/84
[2020-12-19] MEDS: CYANOCOBALAMIN (B-12) 1000 MCG/1 ML VIAL SUBCUT SCH (14:00)
[2020-12-19 22:00] VITALS: BP 141/82
[2020-12-20] MEDS: ACCU-CHEK COMFORT CURVE STRIP VI SCH ×4 (06:25→22:00)
[2020-12-20] MEDS: InsuLIN REG 1unit/0.01ml Soln (100units/ml) SC SCH ×4 (06:25→23:21)
[2020-12-20 06:28] VITALS: BP_SYST 145
[2020-12-20 08:55] VITALS: BP 122/69
[2020-12-20] MEDS: BUDESONIDE (INHALATION) 180 MCG IH IN SCH ×2 (09:22→21:50)
[2020-12-20] MEDS: ASCORBIC ACID 1,000 MG TAB PO SCH (09:55)
[2020-12-20] MEDS: DexAMETHasone SOD PHOS 10MG/1ML VIAL INJ IV SCH (09:55)
[2020-12-20] MEDS: CHOLECALCIFEROL (VITD3) 2,000 UNIT CAP/TAB PO SCH (09:56)
[2020-12-20] MEDS: ENOXAPARIN SOD 60 MG/0.6 ML SYRINGE SC SCH ×2 (09:56→23:08)
[2020-12-20] MEDS: CYANOCOBALAMIN (B-12) 1000 MCG/1 ML VIAL SUBCUT SCH (09:57)
[2020-12-20] MEDS: HYDROcodone-ACET 5/325MG TAB PO PRN ×2 (09:57→23:08)
[2020-12-20 12:54] VITALS: BP 152/83
[2020-12-20 17:00] VITALS: BP 136/73
[2020-12-20 22:00] VITALS: BP 125/80
[2020-12-21 05:00] VITALS: BP 134/67
[2020-12-21] MEDS: InsuLIN REG 1unit/0.01ml Soln (100units/ml) SC SCH ×3 (06:13→17:00)
[2020-12-21] MEDS: ACCU-CHEK COMFORT CURVE STRIP VI SCH ×3 (06:13→17:00)
[2020-12-21] MEDS: HYDROcodone-ACET 5/325MG TAB PO PRN ×2 (06:15→16:09)
[2020-12-21] MEDS: BUDESONIDE (INHALATION) 180 MCG IH IN SCH (06:48)
[2020-12-21 09:00] VITALS: BP 123/90
[2020-12-21] MEDS: DexAMETHasone SOD PHOS 10MG/1ML VIAL INJ IV SCH (09:15)
[2020-12-21] MEDS: ENOXAPARIN SOD 60 MG/0.6 ML SYRINGE SC SCH (09:16)
[2020-12-21] MEDS: CYANOCOBALAMIN (B-12) 1000 MCG/1 ML VIAL SUBCUT SCH (09:16)
[2020-12-21] MEDS: ASCORBIC ACID 1,000 MG TAB PO SCH (09:16)
[2020-12-21] MEDS: CHOLECALCIFEROL (VITD3) 2,000 UNIT CAP/TAB PO SCH (09:16)
[2020-12-21 11:12] VITALS: BP 123/90
[2020-12-21 17:05] VITALS: BP 114/75
== END 2020-12-21 19:42 | DRG 177 ==
LOC: ER 10:10 → EDUNIT# 10:10 → EDBD 10:10 → TELE 14:41 → TELE-EAST 21:20
PROVIDERS: ADMIT Nurse Practitioner Acute Care; ATTEND Internal Medicine
PROC: XW033E5 Introduction of Remdesivir Anti-infective into Peripheral Vein, Percutaneous Approach, New Technology Group 5 (ICD-10-PCS; principal; 2020-12-14)
DX: U07.1 COVID-19 (principal); J96.01 Acute respiratory failure with hypoxia; G93.41 Metabolic encephalopathy; J12.82 Pneumonia due to coronavirus disease 2019; D68.59 Other primary thrombophilia; R55 Syncope and collapse; I25.10 Atherosclerotic heart disease of native coronary artery without angina pectoris; I48.91 Unspecified atrial fibrillation; E11.9 Type 2 diabetes mellitus without complications; I10 Essential (primary) hypertension; Z96.642 Presence of left artificial hip joint; E55.9 Vitamin D deficiency, unspecified; E78.5 Hyperlipidemia, unspecified; Z88.0 Allergy status to penicillin; Z88.8 Allergy status to other drugs, medicaments and biological substances; Z95.1 Presence of aortocoronary bypass graft
CPT/HCPCS: 36415; 36600; 70450; 71045; 72040; 72100; 73502; 80053; 80307; 81001; 82306; 82728; 82805; 82962; 83036; 83615; 83735; 83880; 84443; 84484; 85007; 85025; 85027; 85379; 86141; 87081; 87426; 93005; 94640; 96365; 96367; 96375; 99291; G0378; J0696; J1100; J1815; J2405